=== PATIENT | female | born 2000 | race Two or more races ===

== ENCOUNTER 2024-12-20 20:40 | Emergency (ER) | payer OTHER ==
[~2024-12-20] VITALS: Ht 157.5 cm; Wt 48.5 kg
[2024-12-20 21:27] LABS: BASO % 0.9 % (0.1-1.2); EOS # 0.32 (0.04-0.54); EOS % 3.2 % (0.7-7.0); HEMATOCRIT 36.6 % (34.1-44.9); HEMOGLOBIN 12.4 g/dL (11.2-15.7); LYMPH # 2.88 (1.18-3.74); LYMPH % 28.7 % (19.3-53.1); MEAN CORPUSCULAR HEMOGLOBIN 29.4 pg (25.6-32.2); MONO # 0.55 (0.24-0.82); MONO % 5.5 % (4.7-12.5); NEUT # 6.17 (1.56-6.13); NEUT % 61.5 % (34.0-71.1); PLATELET COUNT 254 K/uL (163-369); RED BLOOD COUNT 4.22 M/uL (3.93-5.22); RED CELL DISTRIBUTION WIDTH 12.3 % (11.6-14.4)
[2024-12-20 23:37] LABS: PH,URINE 6.5 (5.0-8.0); URINE APPEARANCE Clear; URINE BILIRRUBIN Negative (NEGATIVE); URINE BLOOD Moderate; URINE COLOR Yellow; URINE GLUCOSE Negative (NEGATIVE); URINE KETONE Trace (NEGATIVE); URINE LEUKOCYTE Moderate; URINE NITRATE Positive; URINE PROTEIN Negative (NEGATIVE)
[2024-12-20 23:40] LABS: URINE BACTERIA 9135.3 uL (0.0-1933); URINE EPITHELIAL CELLS 16.4 uL (0.0-38.8); URINE RBC 207.5 uL (0.0-20.8); URINE WBC 485.5 uL (0.0-23.2)
== END 2024-12-20 22:28 | disposition home or self-care (01) ==
LOC: ER 20:40
PROVIDERS: General Practice
DX: O20.9 Hemorrhage in early pregnancy, unspecified (principal); O34.81 Maternal care for other abnormalities of pelvic organs, first trimester; N83.201 Unspecified ovarian cyst, right side; Z3A.01 Less than 8 weeks gestation of pregnancy